=== PATIENT | male | born 1965 | race Caucasian/White ===

== ENCOUNTER 2016-04-19 15:08 | Emergency (ER) | payer MEDICARE ==
[2016-04-19] MEDS ORDERED: ASPIRIN 81 MG TABLET, CHEWABLE PO ONE (15:24)
--- NOTE | 2016-04-19 15:24 | ER Document Report ---
ED Medical Screen (RME) - General Stated Complaint: DIFFICULTY BREATHING Time seen by provider: 15:22 Mode of Arrival: Ambulatory Information source: Patient Notes: 51-year-old male presents to ED for shortness of breath states he is on 2 L of oxygen at home but does not have a portable tank. He has a history of CHF and COPD. Shortness of breath got much worse this morning. States chest is real tight hurts. States she's never had a heart attack does have elevated blood pressure and cholesterol with diabetes. Shortness of breath started this morning real bad chest pain started midday. I have greeted and performed a rapid initial assessment of this patient. A comprehensive ED assessment and evaluation of the patient, analysis of test results and completion of medical decision making process will be conducted by an additional ED providers. TRAVEL OUTSIDE OF THE [place] IN LAST 30 DAYS: No - HPI Onset: This morning - Related Data Allergies/Adverse Reactions: No Known Allergies Allergy (Verified 11/14/ 00:17) Past Medical History - Past Medical History Cardiac Medical History: Reports: Hx Congestive Heart Failure, Hx Hypercholesterolemia, Hx Hypertension Pulmonary Medical History: Reports: Hx COPD, Hx Sleep Apnea Neurological Medical History: Reports: Hx Migraine, Hx Seizures Endocrine Medical History: Reports: Hx Diabetes Mellitus Type 2 Past Surgical History: Reports: Hx Adenoidectomy, Hx Appendectomy, Hx Cardiac Catheterization, Hx Cholecystectomy, Hx Orthopedic Surgery - Lumbar Fusion, Hx Tonsillectomy - Immunizations Hx Diphtheria, Pertussis, Tetanus Vaccination: Yes
--- NOTE | 2016-04-19 15:53 | ER Document Report ---
ED General - General Chief Complaint: Shortness Of Breath Stated Complaint: DIFFICULTY BREATHING Mode of Arrival: Ambulatory Notes: This is a 51-year-old male with obesity, hypertension, diabetes, COPD on home oxygen who presents complaining of sinus congestion and a cough. He states that he has had similar symptoms about 3 weeks ago. He took steroids and amoxicillin at that time. He did improve temporarily but feels that he is worsened over the past couple of days. He attributes this with traveling to [place], he states he was get sick when he goes to [place]. No leg pain or swelling. TRAVEL OUTSIDE OF THE [place] IN LAST 30 DAYS: No - Related Data Allergies/Adverse Reactions: No Known Allergies Allergy (Verified 04/19/16 15:25) Past Medical History - General Information source: Patient - Social History Smoking Status: Current Every Day Smoker Chew tobacco use (# tins/day): No Frequency of alcohol use: None Drug Abuse: None Family History: Reviewed & Not Pertinent Patient has suicidal ideation: No Patient has homicidal ideation: No - Past Medical History Cardiac Medical History: Reports: Hx Congestive Heart Failure, Hx Hypercholesterolemia, Hx Hypertension Pulmonary Medical History: Reports: Hx COPD, Hx Sleep Apnea Neurological Medical History: Reports: Hx Migraine, Hx Seizures Endocrine Medical History: Reports: Hx Diabetes Mellitus Type 2 Renal/ Medical History: Denies: Hx Peritoneal Dialysis Past Surgical History: Reports: Hx Adenoidectomy, Hx Appendectomy, Hx Cardiac Catheterization, Hx Cholecystectomy, Hx Orthopedic Surgery - Lumbar Fusion, Hx Tonsillectomy - Immunizations Hx Diphtheria, Pertussis, Tetanus Vaccination: Yes Review of Systems - Review of Systems Constitutional: Chills, Malaise. denies: Fever EENT: Throat pain Cardiovascular: denies: Syncope Respiratory: Cough, Short of breath, Wheezing Gastrointestinal: denies: Abdominal pain, Vomiting Genitourinary: denies: Flank pain Musculoskeletal: denies: Leg swelling Skin: denies: Rash Hematologic/Lymphatic: denies: Swollen glands Neurological/Psychological: denies: Numbness, Tingling Physical Exam - Vital signs Vitals: Temp Pulse Resp BP Pulse Ox 98.0 F 91 18 145/84 H 96 04/19/16 15:24 04/19/16 15:24 04/19/16 15:24 04/19/16 15:24 04/19/16 15:24 - General General appearance: Appears well, Alert In distress: None - Jovial, pleasant, no distress - HEENT Head: Normocephalic Pupils: PERRL Mouth/Lips: Normal Mucous membranes: Normal Pharynx: Normal Neck: Normal - Respiratory Respiratory status: Tachypnea - Mild tachypnea, no retractions Chest status: Nontender Breath sounds: Wheezing - Diffuse bilateral wheezing with fair air entry throughout Chest palpation: Normal - Cardiovascular Rhythm: Regular Murmur: No - Abdominal Inspection: Morbidly Obese Tenderness: Nontender - Back Back: Normal - Extremities General upper extremity: Normal inspection General lower extremity: Normal inspection. No: Edema - Neurological Neuro grossly intact: Yes Orientation: AAOx4 - Psychological Associated symptoms: Normal affect - Skin Skin Temperature: Warm Skin Moisture: Dry Skin Color: Normal Course - Re-evaluation Re-evalutation: 04/19/16 18:08 Patient significantly improved after treatment here. Breath sounds are now clear and equal. Oxygen saturation on his normal 2 L oxygen is greater than 96% . He is able to speak in complete sentences. Chest x-ray does not show any acute infiltrates. Patient is comfortable going home and understands his return precautions. - Vital Signs Vital signs: Temp Pulse Resp BP Pulse Ox 98.0 F 91 16 130/75 H 96 04/19/16 15:24 04/19/16 15:24 04/19/16 17:33 04/19/16 17:33 04/19/16 17:33 - Laboratory Result Diagrams: 04/19/16 15:40 04/19/16 15:40 Laboratory results interpreted by me: 04/19/16 04/19/16 15:40 15:40 Plt Count 130 L Monocytes % 13.1 H Chloride 95 L Carbon Dioxide 33 H Glucose 247 H - Diagnostic Test Radiology reviewed: Image reviewed, Reports reviewed - EKG Interpretation by Ri EKG shows normal: Sinus rhythm Rate: Normal Rhythm: NSR - 91 [place]/QRS: Left axis deviation Discharge - Discharge Clinical Impression: COPD with acute bronchitis, Sinus congestion Condition: Good Disposition: HOME, SELF-CARE Additional Instructions: return if you are feeling more short of breath, have high fever, a lot of pain or any new concerns. Follow up with your primary care physician/ practioner on Friday. Prescriptions: Azithromycin [Zithromax 250 mg Tablet] 250 mg PO ASDIR PRN #6 tablet PRN Reason: Guaifenesin [Mucinex] 1,200 mg PO Q12 #14 tbmp.12hr Prednisone [Deltasone 20 mg Tablet] 3 tab PO DAILY 5 Days Referrals: ARPITA GAXIOLA PA-C [Primary Care Provider] - Follow up as needed
[2016-04-19] MEDS ORDERED: IPRATROPIUM/ALBUTEROL 0.5-2.5 MG/3 ML AMPUL NEB ONE (16:05)
[2016-04-19] MEDS ORDERED: METHYLPREDNISOLONE INJ 125 MG/2 ML SDV IV ONE (16:05)
[2016-04-19 16:15] LABS: ABSOLUTE EOSINOPHILS # (AUTO) 0.1 10^3/uL (0.0-0.6); ABSOLUTE LYMPHOCYTES (AUTO) 1.5 10^3/uL (0.5-4.7); ABSOLUTE MONOCYTES (AUTO) 0.7 10^3/uL (0.1-1.4); ABSOLUTE NEUT (AUTO) 3.2 10^3/uL (1.7-8.2); BASOPHILS % (AUTO) 0.6 % (0-2); EOSINOPHILS % (AUTO) 1.6 % (0-6); HEMATOCRIT 48.6 % (37.9-51.0); HEMOGLOBIN 15.8 g/dL (13.5-17.0); HGB HCT DIFFERENCE -1.2; LYMPHOCYTES % (AUTO) 27.3 % (13-45); MEAN CORPUSCULAR HEMOGLOBIN 30.4 pg (27.0-33.4); MEAN CORPUSCULAR HGB CONC 32.5 g/dL (32.0-36.0); MEAN CORPUSCULAR VOLUME 94 fl (80-97); MONOCYTES % (AUTO) 13.1 % (3-13); RED CELL DISTRIBUTION WIDTH 13.3 % (11.5-14.0); SEGMENTED NEUTROPHILS % (AUTO) 57.4 % (42-78); WHITE BLOOD COUNT 5.5 10^3/uL (4.0-10.5)
[2016-04-19 16:44] LABS: ALANINE AMINOTRANSFERASE 41 U/L (21-72); ALKALINE PHOSPHATASE 82 U/L (38-126); ANION GAP 10 (5-19); ASPARTATE AMINO TRANSFERASE 31 U/L (17-59); BLOOD UREA NITROGEN 13 mg/dL (7-20); CALCIUM 9.5 mg/dL (8.4-10.2); CARBON DIOXIDE 33 mmol/L (22-30); CHLORIDE 95 mmol/L (98-107); CREATINE KINASE 115 U/L (55-170); CREATININE RESULT 0.79 mg/dL (0.52-1.25); GLUCOSE 247 mg/dL (75-110); MAGNESIUM 1.7 mg/dL (1.6-2.3); POTASSIUM 4.4 mmol/L (3.6-5.0); SODIUM 137.7 mmol/L (137-145); TOTAL PROTEIN 7.5 g/dL (6.3-8.2)
[2016-04-19 16:55] LABS: CREATINE KINASE MB 2.68 ng/mL (<4.55)
[2016-04-19 16:59] LABS: TROPONIN I < 0.012 ng/mL
[2016-04-19] MEDS ORDERED: PREDNISONE 20 MG TABLET PO ONE (17:11)
[2016-04-19 19:46] VITALS: BP 139/88
--- NOTE | 2016-04-19 20:56 | EKG REPORT ---
SEVERITY:- OTHERWISE NORMAL ECG - SINUS RHYTHM BORDERLINE LEFT AXIS DEVIATION : Confirmed by: Yfn De Guzman MD 19-Apr-2016 20:55:49
== END 2016-04-19 19:46 | disposition home or self-care (01) ==
LOC: ER 15:08
DX: J44.9 Chronic obstructive pulmonary disease, unspecified (principal); J20.9 Acute bronchitis, unspecified; R09.81 Nasal congestion; R06.02 Shortness of breath; E66.9 Obesity, unspecified; I10 Essential (primary) hypertension; E11.9 Type 2 diabetes mellitus without complications; R05 Cough; F17.210 Nicotine dependence, cigarettes, uncomplicated
CPT/HCPCS: 93005; 94640; 99285; 36415; 82553; 82550; 83735; 85025; 80053; 84484; 71020; 93010; A9270 ×3; J7512; J7620

== ENCOUNTER → 2016-10-09 | Outpatient (CLI) | payer MEDICARE ==
--- NOTE | 2016-10-09 12:25 | RADIOLOGY REPORT (SQ) ---
EXAM DESCRIPTION: CHEST PA/LAT COMPLETED DATE/TIME: 10/09/2016 12:09 pm REASON FOR STUDY: COPD WITH ACUTE EXACERBATION COMPARISON: 04/19/2016 EXAM PARAMETERS: NUMBER OF VIEWS: two views TECHNIQUE: Digital Frontal and Lateral radiographic views of the chest acquired. RADIATION DOSE: NA LIMITATIONS: none FINDINGS: LUNGS AND PLEURA: Interstitial markings are prominent but unchanged. No consolidation or effusions. MEDIASTINUM AND HILAR STRUCTURES: No masses or contour abnormalities. HEART AND VASCULAR STRUCTURES: Heart normal size. No evidence for failure. BONES: No acute findings. HARDWARE: None in the chest. OTHER: No other significant finding. IMPRESSION: NO SIGNIFICANT RADIOGRAPHIC FINDING IN THE CHEST. TECHNICAL DOCUMENTATION: JOB ID: [id number] [employer]- All Rights Reserved
--- NOTE | 2016-10-10 16:36 | XCELERA REPORT ---
[address] [address] Lower Extremity Venous Evaluation Name: BARBARA ESTEBAN Age: 51 yrs Gender: Male : 1965 Patient Status: Outpatient Patient Location: Study Date: 10/09/2016 12:51 PM Procedure: Color flow and duplex imaging of the veins of the right lower extremity as well as the left Common Femoral vein. Reason For Study: RIGHT CALF PAIN Ordering Physician: ARPITA GAXIOLA PA-C Performed By: Lenka Preciado Right Sided Venous Evaluation Normal vessel filling wall to wall, compression and augmentation as well as Colour flow down to the infrageniculate veins. Left Sided Venous Evaluation The left common femoral vein is fully compressible. Spontaneous and phasic flow is present in the left common femoral vein. Interpretation Summary No duplex evidence of DVT or obstruction in the right lower extremity nor in the left Common Femoral vein. : ARPITA GAXIOLA PA-C > Umberto Calabrese
== END ==
LOC: SP 11:48
PROVIDERS: ATTEND Physician Assistant
DX: J44.1 Chronic obstructive pulmonary disease with (acute) exacerbation (principal); M79.661 Pain in right lower leg
CPT/HCPCS: 71020; 93971

== ENCOUNTER 2016-10-22 20:53 | Emergency (ER) | payer MEDICARE, MEDICAID ==
--- NOTE | 2016-10-22 21:10 | ER Document Report ---
ED Seizure - General Mode of Arrival: Medic Information source: Patient, Emergency Med Personnel - [facility] Patient complains to provider of: History of seizures Associated Symptoms: Other - See above <GREGORIA CORBETT - Last Filed: 10/22/16 21:33> <DARYA HUNTER - Last Filed: 10/23/16 00:18> - General Chief Complaint: Seizure Stated Complaint: seizure Notes: Patient is a 51 year old male, with a past medical history including epilepsy and CHF, who presents to the emergency department via EMS for seizures just prior to arrival. Per EMS, patient was at home on his couch with his brother and sister in law when they witnessed him have 5 seizures in quick succession. EMS report that when they arrived patient was sitting up and could tell them his name and his location and they then witnessed two more seizures where the patient clenched and shook, patient mostly napped on his way to the ED. Patient reports that he has not missed any of his seizure medications and is on Plavix for his CHF. Patient states that he started an antibiotic 2 weeks ago. Patient reports that his seizures have been under control and that he cannot remember his last one but that he usually does not have so many in such a short amount of time. Patient currently complains of back pain, general muscle pain, and a headache. PCP: Dr. Orona (GREGORIA CORBETT) - Related Data Allergies/Adverse Reactions: No Known Allergies Allergy (Verified 10/22/16 21:03) Past Medical History - General Information source: Patient, Emergency Med Personnel - Social History Smoking Status: Current Some Day Smoker Chew tobacco use (# tins/day): Yes Frequency of alcohol use: None Drug Abuse: None Family History: Reviewed & Not Pertinent - Past Medical History Cardiac Medical History: Reports: Hx Congestive Heart Failure, Hx Hypercholesterolemia, Hx Hypertension Pulmonary Medical History: Reports: Hx COPD, Hx Sleep Apnea Neurological Medical History: Reports: Hx Migraine, Hx Seizures Endocrine Medical History: Reports: Hx Diabetes Mellitus Type 2 Past Surgical History: Reports: Hx Adenoidectomy, Hx Appendectomy, Hx Cardiac Catheterization, Hx Cholecystectomy, Hx Orthopedic Surgery - Lumbar Fusion, Hx Tonsillectomy - Immunizations Hx Diphtheria, Pertussis, Tetanus Vaccination: Yes <GREGORIA CORBETT - Last Filed: 10/22/16 21:33> Review of Systems - Review of Systems Constitutional: No symptoms reported EENT: No symptoms reported Cardiovascular: No symptoms reported Respiratory: No symptoms reported Gastrointestinal: No symptoms reported Genitourinary: No symptoms reported Male Genitourinary: No symptoms reported Musculoskeletal: See HPI, Back pain, Muscle pain Skin: No symptoms reported Hematologic/Lymphatic: No symptoms reported Neurological/Psychological: See HPI, Seizure, Headaches -: Yes All other systems reviewed and negative <GREGORIA CORBETT - Last Filed: 10/22/16 21:33> Physical Exam <CHELLEGREGORIA - Last Filed: 10/22/16 21:33> <DARYA HUNTER - Last Filed: 10/23/16 00:18> - Vital signs Vitals: Resp BP Pulse Ox 14 122/85 99 10/22/16 21:01 10/22/16 21:01 10/22/16 21:01 - Notes Notes: GENERAL: Appears tired but becomes alert quickly. No acute distress. HEAD: Normocephalic, atraumatic. EYES: Pupils equal, round, and reactive to light. Extraocular movements intact. ENT: Oral mucosa moist, tongue midline. no bite pollard to tongue. NECK: Full range of motion. Supple. Trachea midline. LUNGS: Clear to auscultation bilaterally, no wheezes, rales, or rhonchi. No respiratory distress. HEART: Regular rate and rhythm. No murmurs, gallops, or rubs. ABDOMEN: Soft, non-tender. Non-distended. Bowel sounds present in all 4 quadrants. EXTREMITIES: Moves all 4 extremities spontaneously. No edema, radial and dorsalis pedis pulses 2/4 bilaterally. No cyanosis. NEUROLOGICAL: Alert and oriented x3. Sleeping, awakes to verbal stimuli. Normal speech. Biceps and patellar DTRs 2+ bilaterally. PSYCH: Normal affect, normal mood. SKIN: Warm, dry, normal turgor. No rashes or lesions noted. (GREGORIA CORBETT) Course <GREGORIA CORBETT - Last Filed: 10/22/16 21:33> - Laboratory Result Diagrams: 10/22/16 22:17 10/22/16 22:17 <DARYA HUNTER - Last Filed: 10/23/16 00:18> - Re-evaluation Re-evalutation: 10/22/16 23:25 CBC unremarkable with the exception of slightly low platelets 117, coags normal , CMP shows elevated glucose at 227 otherwise unremarkable, CT scan of the head is negative, chest x-ray is negative. Patient had 2 more seizures here in the emergency department but after a gram of Keppra IV he is completely back to normal. Only complains of his usual headache and backache after a seizure. That technically he fit the definition for status epilepticus tonight however he has completely normalized, discussed transfer him to another hospital for observation versus keeping him here for a little bit longer and then discharging to home so long as he stayed neurologically intact. At present patient would like to be discharged so long he does he does not have another seizure tonight. I am uncertain what may have triggered his increased seizure frequency, he did just finish taking a new antibiotic tonight but he cannot remember its name. This was for possible prostatitis. Patient has not skipped any of the seizure medications and has no medications. Patient will be referred to Dr. Nuno as an outpatient for further follow-up. (DARYA HUNTER) - Vital Signs Vital signs: Temp Pulse Resp BP Pulse Ox 13 137/88 H 96 10/22/16 22:17 10/22/16 22:17 10/22/16 22:17 - Laboratory Laboratory results interpreted by me: 10/22/16 10/22/16 10/22/16 22:17 22:17 23:00 Plt Count 117 L Glucose 227 H Urine Protein 30 H Urine Glucose (UA) 50 H - EKG Interpretation by Me Additional EKG results interpreted by me: 10/22/16 23:26 EKG shows sinus rhythm at a rate of 97, left axis deviation, normal intervals, no ST segment elevations or depressions, no T-wave inversions per my interpretation. (DARYA HUNTER) Discharge <GREGORIA CORBETT - Last Filed: 10/22/16 21:33> <DARYA HUNTER - Last Filed: 10/23/16 00:18> - Discharge Clinical Impression: Seizures Condition: Stable Disposition: HOME, SELF-CARE Additional Instructions: I am uncertain why you had so any seizures this evening. Should you have another seizure please return to the emergency department and we will consider admitting you. Do not skip any doses of your medications. Please follow-up with Dr. Nuno as an outpatient for further evaluation by a neurologist. Referrals: ARPITA ORONA PA-C [Primary Care Provider] - Follow up as needed ROBERT NUNO MD [ACTIVE STAFF] - Follow up in 3-5 days Scribe Attestation: 10/22/16 23:28 I personally performed the services described in the documentation, reviewed and edited the documentation which was dictated to the scribe in my presence, and it accurately records my words and actions. (DARYA HUNTER) Scribe Documentation - Scribe Written by Yolie:: yolie Ramirez, 10/22/16, 2132 acting as scribe for :: Slick <GREGORIA CORBETT - Last Filed: 10/22/16 21:33>
[2016-10-22] MEDS ORDERED: LEVETIRACETAM 1000 MG/NACL-ISO 100 ML IV ONE (21:27)
[2016-10-22 22:26] LABS: ABSOLUTE BASOPHILS # (AUTO) 0.1 10^3/uL (0.0-0.2); ABSOLUTE EOSINOPHILS # (AUTO) 0.1 10^3/uL (0.0-0.6); ABSOLUTE LYMPHOCYTES (AUTO) 1.7 10^3/uL (0.5-4.7); ABSOLUTE MONOCYTES (AUTO) 0.5 10^3/uL (0.1-1.4); ABSOLUTE NEUT (AUTO) 4.3 10^3/uL (1.7-8.2); BASOPHILS % (AUTO) 0.9 % (0-2); EOSINOPHILS % (AUTO) 1.7 % (0-6); HEMATOCRIT 43.9 % (37.9-51.0); HEMOGLOBIN 14.9 g/dL (13.5-17.0); HGB HCT DIFFERENCE 0.8; LYMPHOCYTES % (AUTO) 25.4 % (13-45); MEAN CORPUSCULAR HEMOGLOBIN 31.8 pg (27.0-33.4); MEAN CORPUSCULAR HGB CONC 34.1 g/dL (32.0-36.0); MEAN CORPUSCULAR VOLUME 94 fl (80-97); MONOCYTES % (AUTO) 7.9 % (3-13); RED BLOOD COUNT 4.69 10^6/uL (4.35-5.55); RED CELL DISTRIBUTION WIDTH 13.5 % (11.5-14.0); SEGMENTED NEUTROPHILS % (AUTO) 64.1 % (42-78); WHITE BLOOD COUNT 6.7 10^3/uL (4.0-10.5)
[2016-10-22 22:33] LABS: PROTHROMBIN TIME 13.3 SEC (11.4-15.4)
[2016-10-22 22:34] LABS: PARTIAL THROMBOPLASTIN TIME 27.2 SEC (23.5-35.8)
--- NOTE | 2016-10-22 22:37 | RADIOLOGY REPORT (SQ) ---
EXAM DESCRIPTION: CHEST SINGLE VIEW COMPLETED DATE/TIME: 10/22/2016 10:29 pm REASON FOR STUDY: 5 seizures COMPARISON: 10/09/2016 EXAM PARAMETERS: NUMBER OF VIEWS: One view. TECHNIQUE: Single frontal radiographic view of the chest acquired. RADIATION DOSE: NA LIMITATIONS: None. FINDINGS: LUNGS AND PLEURA: No opacities, masses or pneumothorax. No pleural effusion. MEDIASTINUM AND HILAR STRUCTURES: No masses. Contour normal. HEART AND VASCULAR STRUCTURES: The configuration of the heart and mediastinal structures is unchanged . BONES: Degenerative changes are again identified in the thoracic spine HARDWARE: None in the chest. OTHER: No other significant finding. IMPRESSION: No significant interval change. No acute findings. Other findings as noted above TECHNICAL DOCUMENTATION: JOB ID: [id number]
[2016-10-22 22:43] LABS: ALANINE AMINOTRANSFERASE 53 U/L (21-72); ALBUMIN 4.3 g/dL (3.5-5.0); ALKALINE PHOSPHATASE 73 U/L (38-126); ANION GAP 10 (5-19); ASPARTATE AMINO TRANSFERASE 32 U/L (17-59); BILIRUBIN,DIRECT 0.3 mg/dL (0.0-0.4); BILIRUBIN,TOTAL 0.7 mg/dL (0.2-1.3); BLOOD UREA NITROGEN 15 mg/dL (7-20); CALCIUM 9.4 mg/dL (8.4-10.2); CARBON DIOXIDE 29 mmol/L (22-30); CHLORIDE 100 mmol/L (98-107); CREATININE RESULT 0.95 mg/dL (0.52-1.25); GLUCOSE 227 mg/dL (75-110); POTASSIUM 4.1 mmol/L (3.6-5.0); SODIUM 138.9 mmol/L (137-145); TOTAL PROTEIN 7.7 g/dL (6.3-8.2)
--- NOTE | 2016-10-22 23:08 | RADIOLOGY REPORT (SQ) ---
EXAM DESCRIPTION: CT HEAD WITHOUT COMPLETED DATE/TIME: 10/22/2016 10:38 pm REASON FOR STUDY: 5 seizures COMPARISON: October 2015 TECHNIQUE: Axial images acquired through the brain without intravenous contrast. Images reviewed wi th bone, brain and subdural windows. Images stored on PACS. All CT scanners at this facility use dose modulation, iterative reconstruction, and/or weight based d osing when appropriate to reduce radiation dose to as low as reasonably achievable (ALARA). [facility]: Dose Right [facility]: CareDose [facility]: Dose Right [facility]: Teradose 4D [facility]: Smart Dark Fibre [place] RADIATION DOSE: Up-to-date CT equipment and radiation dose reduction techniques were employed. CTDIv ol: 55.3 mGy. DLP: 996 mGy-cm. mGy. LIMITATIONS: None. FINDINGS: VENTRICLES: Normal size and contour. CEREBRUM: No masses. No hemorrhage. No midline shift. Normal gonzáles/white matter differentiation. N o evidence for acute infarction. CEREBELLUM: No masses. No hemorrhage. No alteration of density. No evidence for acute infarction. EXTRAAXIAL SPACES: No fluid collections. No masses. ORBITS AND GLOBE: No intra- or extraconal masses. Normal contour of globe without masses. CALVARIUM: No fracture. PARANASAL SINUSES: There is opacification of the right maxillary antra which was not present on the p revious study SOFT TISSUES: No mass or hematoma. OTHER: No other significant finding. IMPRESSION: No significant intracranial abnormalities were identified. Sinus disease as noted above . TECHNICAL DOCUMENTATION: JOB ID: [id number] Quality ID # [id number]: Final reports with documentation of one or more dose reduction techniques (e.g., Au tomated exposure control, adjustment of the mA and/or kV according to patient size, use of iterative reconstruction technique) 2010 [employer]- All Rights Reserved
[2016-10-22] MEDS ORDERED: KETOROLAC TROMETHAMINE INJ/PF 30 MG/1 ML SDV IV ONE (23:24)
[2016-10-22 23:36] LABS: APPEARANCE,URINE CLEAR; BILIRUBIN,URINE NEGATIVE (NEGATIVE); GLUCOSE, URINE 50 mg/dL (NEGATIVE); KETONES,URINE NEGATIVE (NEGATIVE); LEUKOCYTE ESTERASE,URINE NEGATIVE (NEGATIVE); NITRITE,URINE NEGATIVE (NEGATIVE); PROTEIN,URINE 30 mg/dL (NEGATIVE); URINE SPECIFIC GRAVITY 1.014; UROBILINOGEN,URINE NEGATIVE mg/dL (<2.0)
[2016-10-23 00:22] VITALS: BP 128/85
--- NOTE | 2016-10-23 16:24 | EKG REPORT ---
SEVERITY:- OTHERWISE NORMAL ECG - SINUS RHYTHM LEFT AXIS DEVIATION : Confirmed by: Salina Genao MD 23-Oct-2016 16:23:53
== END 2016-10-23 00:32 | disposition home or self-care (01) ==
LOC: ER 20:53
DX: R56.9 Unspecified convulsions (principal); I50.9 Heart failure, unspecified; M54.9 Dorsalgia, unspecified; R51 Headache; M79.1 Myalgia; F17.200 Nicotine dependence, unspecified, uncomplicated
CPT/HCPCS: 93005; 99285; 96375; 96365; 36415; 85025; 85610; 85730; 80053; 81001; 71010; 70450; 93010; J1885; J1953

== ENCOUNTER 2017-01-31 16:57 | Emergency (ER) | payer MEDICARE ==
[2017-01-31] MEDS ORDERED: ONDANSETRON 4 MG TAB.RAPDIS PO ONE (18:19)
[2017-01-31] MEDS ORDERED: HYDROCODONE/ACETAMINOPHEN 5-325 MG TABLET PO ONE (18:19)
--- NOTE | 2017-01-31 18:23 | ER Document Report ---
ED Fall - General Chief Complaint: Fall Injury Stated Complaint: FALL/LEFT KNEE AND HIP PAIN Time Seen by Provider: 01/31/17 17:41 Mode of Arrival: Ambulatory Information source: Patient TRAVEL OUTSIDE OF THE [place] IN LAST 30 DAYS: No - HPI Occurred: Yesterday Where: Home Context: Tripped Associated symptoms: None Location of injury/pain: Ankle, Back, Hip, Knee Quality of pain: Achy Severity: Moderate Notes: Patient arrives with complaints of pain after fall. The patient states he was walking through his living room last evening with the lights off when he tripped over a coffee table. States that he injured his right ankle, right echeverria , left knee, left hip, low back. He has a history of prior surgery to his lumbar spine with hardware. He denies striking his head. He denies loss of consciousness. He denies any chest or abdominal pain. He denies any numbness, tingling, weakness. No bowel or bladder dysfunction. No fevers. He is on Plavix. He denies any other blood thinners. He denies fever. He denies IV drug use. He denies taking any chronic pain medications. - Related data Allergies/Adverse Reactions: No Known Allergies Allergy (Verified 01/31/17 17:00) Past Medical History - Social History Smoking Status: Unknown if Ever Smoked Family History: Reviewed & Not Pertinent Patient has suicidal ideation: No Patient has homicidal ideation: No - Past Medical History Cardiac Medical History: Reports: Hx Congestive Heart Failure, Hx Hypercholesterolemia, Hx Hypertension Pulmonary Medical History: Reports: Hx COPD, Hx Sleep Apnea Neurological Medical History: Reports: Hx Migraine, Hx Seizures Endocrine Medical History: Reports: Hx Diabetes Mellitus Type 2 Renal/ Medical History: Denies: Hx Peritoneal Dialysis Past Surgical History: Reports: Hx Adenoidectomy, Hx Appendectomy, Hx Cardiac Catheterization, Hx Cholecystectomy, Hx Orthopedic Surgery - Lumbar Fusion, Hx Tonsillectomy - Immunizations Hx Diphtheria, Pertussis, Tetanus Vaccination: Yes Review of Systems - Review of Systems -: Yes All other systems reviewed and negative Physical Exam - Vital signs Vitals: Temp Pulse Resp BP Pulse Ox 97.8 F 100 18 163/115 H 95 01/31/17 17:00 01/31/17 17:00 01/31/17 17:00 01/31/17 17:00 01/31/17 17:00 - Notes Notes: GENERAL: alert, cooperative, nontoxic, no distress. HEAD: normocephalic, atraumatic EYES: conjunctiva pink without discharge, no external redness or swelling. PERRL , EOM'S INTACT EARS: no external swelling, no external redness. No hemotympanum EM NOSE: atraumatic, no external swelling. No bleeding MOUTH/THROAT: mucous membranes moist and pink, posterior pharynx without erythema, swelling, exudate. No trismus or drooling. NECK: soft, supple, full range of motion, no meningismus. No midline tenderness step-offs or crepitus to palpation of the cervical spine. CHEST: no distress, lungs clear and equal throughout. No wheezing, rales, rhonchi. No tenderness. CARDIAC: regular rate and rhythm, no murmur, normal capillary refill, normal pulses. No peripheral edema noted. ABDOMEN: Soft, nontender. No ecchymosis. BACK: full range of motion, no CVA tenderness. No midline tenderness step-offs or crepitus to palpation of the thoracic spine. Tenderness to palpation of the midline lumbar spine. No step-offs or crepitus. Healed postsurgical incisions noted. No redness or swelling. EXTREMITIES: full range of motion of all extremities. No redness, no swelling. Tenderness to palpation to the lateral malleolus of the right ankle. No significant swelling. No deformity. Achilles is intact with a normal Woods' s test. Normal pulse and sensation. Patient does have some mild proximal tib- fib tenderness on exam as well. No obvious deformity. Patient has tenderness to palpation to the lateral aspect of the left knee. There is no ligament instability. He also has some mild tenderness to palpation of the left hip. He has full range of motion. Normal pulse and sensation distally. NEURO: alert and oriented x 3, no focal deficits, full range of motion of all extremities. Cranial nerves II through XII are grossly intact. Reflexes are normal bilaterally. Normal sensation bilaterally. Normal strength bilaterally. PYSCH: appropriate mood, affect. Patient is cooperative. SKIN: pink, warm, dry, no rash. Course - Re-evaluation Re-evalutation: 01/31/17 19:33 Patient is nontoxic appearing with stable vitals. The patient tripped over a coffee table last evening and injured his left hip and knee right leg and ankle and low back. He did not strike his head, no loss of consciousness. He has normal neurological exam. X-rays of the lumbar spine, left knee, right tib-fib and right ankle, left hip are negative for acute findings. Patient will be placed in an Nash wrap on the left knee and an ankle stirrup splint on the right ankle. Discharged home with a prescription for Voltaren. Follow-up if not better in 1 week, sooner for increased pain, fever, numbness, tingling, weakness , bowel or bladder dysfunction, or any further concerns. No sign of cauda equina, epidural abscess bleed, discitis, AAA. The patient is noted to have elevated blood pressure during today's emergency department visit. The patient was informed of this finding. The patient was instructed that this may be related to pre-hypertension and requires further evaluation with a primary care provider. The patient has no hypertensive symptoms at this time. The patient's emergency department workup and current diagnosis were explained to the patient and or family. Follow-up instructions were provided. Medications if prescribed were discussed. Instructions for when to return to the emergency department including specific worrisome symptoms were discussed with the patient and/or family. - Vital Signs Vital signs: Temp Pulse Resp BP Pulse Ox 97.8 F 100 18 163/115 H 95 01/31/17 17:00 01/31/17 17:00 01/31/17 17:00 01/31/17 17:00 01/31/17 17:00 - Diagnostic Test Radiology reviewed: Image reviewed, Reports reviewed - Right ankle, right tib- fib, left knee, left hip, lumbar spine with no acute findings. Procedures - Immobilization Left knee Pre-Proc Neuro Vasc Exam: Normal Immobilizer type: Nash wrap Performed by: PCT Post-Proc Neuro Vasc Exam: Normal, Unchanged from pre-exam Alignment checked and good: Yes Right ankle Pre-Proc Neuro Vasc Exam: Normal Immobilizer type: Ankle stirrup Performed by: PCT Post-Proc Neuro Vasc Exam: Normal, Unchanged from pre-exam Alignment checked and good: Yes Discharge - Discharge Clinical Impression: Right ankle sprain Qualifiers: Encounter type: initial encounter Involved ligament of ankle: unspecified ligament Qualified Code(s): S93.401A - Sprain of unspecified ligament of right ankle, initial encounter Left knee sprain Qualifiers: Encounter type: initial encounter Involved ligament of knee: unspecified ligament Qualified Code(s): S83.92XA - Sprain of unspecified site of left knee, initial encounter Lumbar strain Qualifiers: Encounter type: initial encounter Qualified Code(s): S39.012A - Strain of muscle, fascia and tendon of lower back, initial encounter Condition: Stable Disposition: HOME, SELF-CARE Instructions: Ice & Elevation ([facility]), Ice Packs ([facility]), Splint Precautions ([facility]) , Sprained Ankle ([facility]), Sprained Knee ([facility]) Additional Instructions: Take medications as prescribed. Wear splints as needed for comfort. Rest, ice , elevate your injuries. Follow-up if not better in 1 week, sooner for increased pain, fever, abdominal pain, difficulty controlling her bowels or bladder, persistent vomiting, fevers, or any further concerns. Your blood pressure was elevated during today's visit. Have this rechecked with your doctor. Prescriptions: Diclofenac Sodium [Jeanearen 50 Mg Tablet.] 50 mg PO BID #20 tablet.dr Forms: Elevated Blood Pressure Referrals: [facility] [Provider Group] - Follow up as needed
--- NOTE | 2017-01-31 19:14 | RADIOLOGY REPORT (SQ) ---
EXAM DESCRIPTION: KNEE LEFT 3 VIEWS COMPLETED DATE/TIME: 01/31/2017 7:02 pm REASON FOR STUDY: FALL, PAIN COMPARISON: None. NUMBER OF VIEWS: Three views. TECHNIQUE: AP, lateral, and sunrise patella radiographic images acquired of the left knee. LIMITATIONS: None. FINDINGS: MINERALIZATION: Normal. BONES: No acute fracture or dislocation. No worrisome bone lesions. JOINT: Mild osteoarthritis of the patellofemoral and medial tibiofemoral compartments. SOFT TISSUES: No soft tissue swelling. No radio-opaque foreign body. OTHER: No other significant finding. IMPRESSION: MILD OSTEOARTHRITIS. NO RADIOGRAPHIC EVIDENCE OF ACUTE INJURY. TECHNICAL DOCUMENTATION: JOB ID: [id number] [employer]- All Rights Reserved
--- NOTE | 2017-01-31 19:14 | RADIOLOGY REPORT (SQ) ---
EXAM DESCRIPTION: HIP LEFT AP/LATERAL COMPLETED DATE/TIME: 01/31/2017 7:02 pm REASON FOR STUDY: FALL, PAIN COMPARISON: None. NUMBER OF VIEWS: Two views. TECHNIQUE: AP pelvis and additional frog-leg view of the left hip. LIMITATIONS: None. FINDINGS: MINERALIZATION: Normal. LEFT HIP: No fracture or dislocation. No worrisome bone lesions. RIGHT HIP: No fracture or dislocation. No worrisome bone lesions. PUBIS AND ISCHIUM: No fracture. PELVIS: No fracture. SACRUM: No fracture or dislocation. No worrisome bone lesions. LOWER LUMBAR SPINE: No fracture or dislocation. No worrisome bone lesions. No significant disc disea se. SOFT TISSUES: No findings. OTHER: No other significant finding. IMPRESSION: NEGATIVE STUDY OF THE LEFT HIP AND PELVIS. NO RADIOGRAPHIC EVIDENCE OF ACUTE INJURY. TECHNICAL DOCUMENTATION: JOB ID: [id number] [employer]- All Rights Reserved
--- NOTE | 2017-01-31 19:16 | RADIOLOGY REPORT (SQ) ---
EXAM DESCRIPTION: TIBIA FIBULA RIGHT COMPLETED DATE/TIME: 01/31/2017 7:02 pm REASON FOR STUDY: FALL, PAIN COMPARISON: None. NUMBER OF VIEWS: Two views. TECHNIQUE: Two radiographic images acquired of the right tibia and fibula to include the knee and an kle in at least one projection. LIMITATIONS: None. FINDINGS: MINERALIZATION: Normal. BONES: No acute fracture or dislocation. No worrisome bone lesions. SOFT TISSUES: No obvious swelling or foreign body. OTHER: No other significant finding. IMPRESSION: NO RADIOGRAPHIC EVIDENCE OF ACUTE INJURY. TECHNICAL DOCUMENTATION: JOB ID: [id number] [email or web address]- All Rights Reserved
--- NOTE | 2017-01-31 19:17 | RADIOLOGY REPORT (SQ) ---
EXAM DESCRIPTION: ANKLE RIGHT COMPLETE COMPLETED DATE/TIME: 01/31/2017 7:02 pm REASON FOR STUDY: FALL, PAIN COMPARISON: None. NUMBER OF VIEWS: Three views. TECHNIQUE: AP, lateral, and oblique radiographic images acquired of the right ankle. LIMITATIONS: None. FINDINGS: MINERALIZATION: Normal. BONES: No acute fracture or dislocation. No worrisome bone lesions. JOINTS: No effusions. SOFT TISSUES: Soft tissue calcification versus retained foreign body abutting the medial malleolus. No focal soft tissue swelling. OTHER: No other significant finding. IMPRESSION: NO RADIOGRAPHIC EVIDENCE OF ACUTE INJURY. SOFT TISSUE CALCIFICATION VERSUS RETAINED FOR EIGN BODY PRESUMABLY CHRONIC GIVEN ABSENCE OF ADJACENT SOFT TISSUE SWELLING. TECHNICAL DOCUMENTATION: JOB ID: [id number] [employer]- All Rights Reserved
--- NOTE | 2017-01-31 19:18 | RADIOLOGY REPORT (SQ) ---
EXAM DESCRIPTION: L SPINE WHOLE COMPLETED DATE/TIME: 01/31/2017 7:02 pm REASON FOR STUDY: FALL, PAIN COMPARISON: 08/16/2015 NUMBER OF VIEWS: Five views including obliques. TECHNIQUE: AP, lateral, oblique, and sacral radiographic images acquired of the lumbar spine. LIMITATIONS: None. FINDINGS: MINERALIZATION: Normal. SEGMENTATION: Normal. No transitional anatomy. ALIGNMENT: Stable. VERTEBRAE: Maintained height. No fracture or worrisome bone lesion. DISCS: Stable degenerative change. POSTERIOR ELEMENTS: Stable postsurgical change. Pedicles and facets are intact. No pars defect or p osterior arch defects. HARDWARE: Intact. PARASPINAL SOFT TISSUES: Normal. PELVIS: Intact as visualized. No fractures or worrisome bone lesions. SI joints intact. OTHER: No other significant finding. IMPRESSION: NO ACUTE OSSEOUS ABNORMALITY OR HARDWARE COMPLICATION IDENTIFIED. TECHNICAL DOCUMENTATION: JOB ID: [id number] [email or web address]- All Rights Reserved
[2017-01-31 20:12] VITALS: BP 168/93
== END 2017-01-31 19:48 | disposition home or self-care (01) ==
LOC: ER 16:57
DX: S93.401A Sprain of unspecified ligament of right ankle, initial encounter (principal); S83.92XA Sprain of unspecified site of left knee, initial encounter; S39.012A Strain of muscle, fascia and tendon of lower back, initial encounter; M25.562 Pain in left knee; M25.552 Pain in left hip; W01.0XXA Fall on same level from slipping, tripping and stumbling without subsequent striking against object, initial encounter
CPT/HCPCS: 99283; 73610; 73502; 73562; 72110; 73590; L1902; A9270 ×2; S0119

== ENCOUNTER 2017-02-10 07:13 | Day surgery (SDC) | payer MEDICARE, MEDICAID ==
[2017-02-10] MEDS ORDERED: PROPOFOL INJ 200 MG/20 ML VIAL IV ONE ×2 (07:22→08:20)
[2017-02-10 09:06] VITALS: BP 114/63
--- NOTE | 2017-02-10 13:30 | Operative Report ---
Operative Report DATE OF SURGERY: 02/10/17 Operative Report: The risks, benefits and alternatives of the procedure including risks of bleeding, perforation requiring surgery are explained to the patient in detail and informed consent was obtained. Patient was taken back to the endoscopy suite and placed in the left, lateral decubital position. Timeout was called. Propofol medications administered. A rectal examination was done which did not reveal any masses, tears or fissures. An Olympus videoscope was inserted into the patient's rectum. It is carefully advanced all the way to the cecum. The cecum was identified by the usual anatomical landmarks including the ileocecal valve as well as the appendiceal office. Photodocumentation is obtained. The scope was then sequentially pulled back out via the various segments of the colon including the ascending colon, hepatic flexure, transverse colon, splenic flexure, descending colon finding the rectosigmoid portions of the colon. Retroflexion maneuvers performed. PREOPERATIVE DIAGNOSIS: Colorectal cancer screening POSTOPERATIVE DIAGNOSIS: Transverse colon polyps status post removal with snare polypectomy and retrieved. Internal hemorrhoids OPERATION: Colonoscopy with snare polypectomy SURGEON: SHEYLA MCQUEEN ANESTHESIA: LMAC TISSUE REMOVED OR ALTERED: As noted above. COMPLICATIONS: None. ESTIMATED BLOOD LOSS: None. INTRAOPERATIVE FINDINGS: As noted above. PROCEDURE: Patient tolerated procedure well. No immediate postprocedure complications are noted. Patient discharged in good condition. Discharge date 02/10/2017. Discharge diet: Regular. Discharge activity: Regular. 2-3 week follow-up to discuss findings. 3-5 year surveillance colonoscopy. We will await pathology. Patient is instructed to call the office or proceed to the emergency room should there be any further problems or questions.
== END 2017-02-10 08:57 | disposition home or self-care (01) ==
LOC: END 07:13
PROVIDERS: ATTEND Internal Medicine Gastroenterology
PROC: 0DBL8ZX Excision of Transverse Colon, Via Natural or Artificial Opening Endoscopic, Diagnostic (ICD-10-PCS; principal; 2017-02-10 08:00)
DX: Z12.11 Encounter for screening for malignant neoplasm of colon (principal); K63.5 Polyp of colon; K64.8 Other hemorrhoids; F17.210 Nicotine dependence, cigarettes, uncomplicated; J45.909 Unspecified asthma, uncomplicated; E78.00 Pure hypercholesterolemia, unspecified; J43.9 Emphysema, unspecified; G43.909 Migraine, unspecified, not intractable, without status migrainosus; G40.909 Epilepsy, unspecified, not intractable, without status epilepticus; I13.0 Hypertensive heart and chronic kidney disease with heart failure and stage 1 through stage 4 chronic kidney disease, or unspecified chronic kidney disease; I50.9 Heart failure, unspecified; N18.1 Chronic kidney disease, stage 1; E11.22 Type 2 diabetes mellitus with diabetic chronic kidney disease; E11.40 Type 2 diabetes mellitus with diabetic neuropathy, unspecified; Z79.899 Other long term (current) drug therapy; Z79.51 Long term (current) use of inhaled steroids; Z79.4 Long term (current) use of insulin
CPT/HCPCS: 45385; 82962; 88305 ×2; J2704; 810

== ENCOUNTER 2017-08-19 12:14 | Emergency (ER) | payer MEDICARE, MEDICAID ==
[2017-08-19] MEDS ORDERED: IPRATROPIUM/ALBUTEROL 0.5-2.5 MG/3 ML AMPUL NEB ONE (12:31)
--- NOTE | 2017-08-19 12:35 | ER Document Report ---
ED Medical Screen (RME) - General Chief Complaint: Low Blood Pressure Stated Complaint: BLOOD PRESSURE ISSUES Time Seen by Provider: 08/19/17 12:25 Notes: RAPID MEDICAL EVALUATION DISCLOSURE I have seen this patient as part of a Rapid Medical Evaluation and, if applicable, placed any initially appropriate orders. The patient will be seen and fully evaluated, including a full history and physical exam, by a provider ( in Main ED or Fast Track) when a room becomes available. 52-year-old male here with complaints of "feeling overall bad" for the past few days. He has had a worsening, as well, as his chronic shortness of breath cough (nonproductive) wheezing for which he has been using his nebulizer treatment with decent relief. Today, he went to see his PCP since he was feeling bad and his blood pressure was found to be in the 90s systolic the patient states his blood pressure is not usually less than 100. He has been eating drinking urinating per usual. He has not had any congestion runny nose sore throat dysuria hematuria frequency abdominal/chest/back/flank pain nausea vomiting diarrhea. Reports the last time this happened (low blood pressure), "there was something wrong with my kidneys". He is not on dialysis EXAM Mild end expiratory wheezes Normal aeration RRR TRAVEL OUTSIDE OF THE [place] IN LAST 30 DAYS: No - Related Data Allergies/Adverse Reactions: No Known Allergies Allergy (Verified 08/19/17 12:16) Past Medical History - Past Medical History Cardiac Medical History: Reports: Hx Congestive Heart Failure, Hx Coronary Artery Disease, Hx Hypercholesterolemia, Hx Hypertension Denies: Hx Heart Attack Pulmonary Medical History: Reports: Hx Asthma, Hx Bronchitis, Hx COPD, Hx Pneumonia, Hx Sleep Apnea Neurological Medical History: Reports: Hx Migraine, Hx Seizures - EPILEPSY. Denies: Hx Cerebrovascular Accident Endocrine Medical History: Reports: Hx Diabetes Mellitus Type 2 Renal/ Medical History: Denies: Hx Peritoneal Dialysis Musculoskeltal Medical History: Reports Hx Arthritis Past Surgical History: Reports: Hx Adenoidectomy, Hx Appendectomy, Hx Cardiac Catheterization, Hx Cholecystectomy, Hx Orthopedic Surgery - Lumbar Fusion, Hx Tonsillectomy - Immunizations Hx Diphtheria, Pertussis, Tetanus Vaccination: Yes Influenza Administration Date for 12/2016 - 05/2017 Season: 11/29/16 Physical Exam - Vital signs Vitals: Temp Pulse Resp BP Pulse Ox 98.6 F 91 22 H 109/81 93 08/19/17 12:21 08/19/17 12:21 08/19/17 12:21 08/19/17 12:21 08/19/17 12:21 Course - Vital Signs Vital signs: Temp Pulse Resp BP Pulse Ox 98.6 F 91 22 H 109/81 93 08/19/17 12:21 08/19/17 12:21 08/19/17 12:21 08/19/17 12:21 08/19/17 12:21
--- NOTE | 2017-08-19 13:07 | RADIOLOGY REPORT (SQ) ---
EXAM DESCRIPTION: CHEST 2 VIEWS COMPLETED DATE/TIME: 08/19/2017 12:57 pm REASON FOR STUDY: cough sob wheezing hypotension COMPARISON: Chest films 11/14/2015, 04/19/2016, 10/09/2016 CT chest 12/22/2014 EXAM PARAMETERS: NUMBER OF VIEWS: two views TECHNIQUE: Digital Frontal and Lateral radiographic views of the chest acquired. RADIATION DOSE: NA LIMITATIONS: none FINDINGS: LUNGS AND PLEURA: No opacities, masses or pneumothorax. No pleural effusion. MEDIASTINUM AND HILAR STRUCTURES: No masses or contour abnormalities. HEART AND VASCULAR STRUCTURES: Heart normal size. No evidence for failure. BONES: No acute findings. HARDWARE: None in the chest. OTHER: No other significant finding. IMPRESSION: NO ACUTE RADIOGRAPHIC FINDING IN THE CHEST. TECHNICAL DOCUMENTATION: JOB ID: [id number] [employer]- All Rights Reserved Reading location - IP/workstation name: [email or web address]
[2017-08-19 13:33] LABS: ABSOLUTE BASOPHILS # (AUTO) 0.1 10^3/uL (0.0-0.2); ABSOLUTE EOSINOPHILS # (AUTO) 0.1 10^3/uL (0.0-0.6); ABSOLUTE LYMPHOCYTES (AUTO) 2.9 10^3/uL (0.5-4.7); ABSOLUTE MONOCYTES (AUTO) 0.7 10^3/uL (0.1-1.4); ABSOLUTE NEUT (AUTO) 4.1 10^3/uL (1.7-8.2); BASOPHILS % (AUTO) 1.2 % (0-2); EOSINOPHILS % (AUTO) 1.6 % (0-6); HEMATOCRIT 45.9 % (37.9-51.0); HEMOGLOBIN 15.9 g/dL (13.5-17.0); LYMPHOCYTES % (AUTO) 36.6 % (13-45); MEAN CORPUSCULAR HEMOGLOBIN 32.3 pg (27.0-33.4); MEAN CORPUSCULAR HGB CONC 34.6 g/dL (32.0-36.0); MEAN CORPUSCULAR VOLUME 93 fl (80-97); MONOCYTES % (AUTO) 8.5 % (3-13); PLATELET COUNT 159 10^3/uL (150-450); RED BLOOD COUNT 4.93 10^6/uL (4.35-5.55); RED CELL DISTRIBUTION WIDTH 12.7 % (11.5-14.0); SEGMENTED NEUTROPHILS % (AUTO) 52.1 % (42-78); TOTAL CELLS COUNTED % (AUTO) 100 %; WHITE BLOOD COUNT 7.9 10^3/uL (4.0-10.5)
[2017-08-19 13:49] LABS: APPEARANCE,URINE CLEAR; BILIRUBIN,URINE NEGATIVE (NEGATIVE); COLOR,URINE YELLOW; GLUCOSE, URINE >=500 mg/dL (NEGATIVE); KETONES,URINE NEGATIVE (NEGATIVE); LEUKOCYTE ESTERASE,URINE NEGATIVE (NEGATIVE); NITRITE,URINE NEGATIVE (NEGATIVE); PROTEIN,URINE 30 mg/dL (NEGATIVE); URINE SPECIFIC GRAVITY 1.011; UROBILINOGEN,URINE NEGATIVE mg/dL (<2.0)
[2017-08-19 13:50] LABS: ALANINE AMINOTRANSFERASE 37 U/L (21-72); ALBUMIN 4.4 g/dL (3.5-5.0); ALKALINE PHOSPHATASE 68 U/L (38-126); ANION GAP 14 (5-19); ASPARTATE AMINO TRANSFERASE 29 U/L (17-59); BILIRUBIN,DIRECT 0.4 mg/dL (0.0-0.4); BILIRUBIN,TOTAL 0.8 mg/dL (0.2-1.3); BLOOD UREA NITROGEN 14 mg/dL (7-20); CALCIUM 10.1 mg/dL (8.4-10.2); CARBON DIOXIDE 31 mmol/L (22-30); CHLORIDE 96 mmol/L (98-107); GLUCOSE 218 mg/dL (75-110); NEONATAL BILIRUBIN RESULT 0.4 mg/dL (0.1-1.1); POTASSIUM 4.6 mmol/L (3.6-5.0); SODIUM 140.5 mmol/L (137-145); TOTAL PROTEIN 7.7 g/dL (6.3-8.2)
[2017-08-19] MEDS ORDERED: MECLIZINE HCL 25 MG TABLET PO ONE (14:22)
[2017-08-19] MEDS ORDERED: ACETAMINOPHEN 325 MG TABLET PO ONE (14:22)
[2017-08-19] MEDS ORDERED: NORMAL SALINE 500 ML IV ONE (14:23)
--- NOTE | 2017-08-19 14:56 | ER Document Report ---
ED General - General Chief Complaint: Low Blood Pressure Stated Complaint: BLOOD PRESSURE ISSUES Time Seen by Provider: 08/19/17 12:25 Mode of Arrival: Ambulatory Information source: Patient, DrSarthak Rosales, [facility] Records Notes: 52-year-old male here with complaints of "feeling overall bad" for the past few days. He has had a worsening of his chronic shortness of breath cough ( nonproductive) wheezing for which he has been using his nebulizer treatment with decent relief. Today, he went to see his PCP since he was feeling bad and his blood pressure was found to be in the 90s systolic the patient states his blood pressure is not usually less than 100. He has been eating, drinking, and urinating normally. Patient also complaining of a headache that started 1 day prior to arrival. Headache is located in his forehead, described as throbbing. Patient states that he has had similar headaches in the past. Patient states the headache awoke him from sleep. Patient also the room moving which is to previous episodes of vertigo for which he takes meclizine. TRAVEL OUTSIDE OF THE [place] IN LAST 30 DAYS: No - HPI Onset: Last week Onset/Duration: Gradual Quality of pain: Throbbing Severity: Moderate Associated symptoms: Headache, Nausea - Nauseous yesterday but now resolved, Shortness of breath - Chronic shortness of breath, Weakness. denies: Fever, Vomiting Exacerbated by: Denies Relieved by: Denies Similar symptoms previously: Yes Recently seen / treated by doctor: Yes - Related Data Allergies/Adverse Reactions: No Known Allergies Allergy (Verified 08/19/17 12:16) Past Medical History - General Information source: Patient - Social History Smoking Status: Current Every Day Smoker Chew tobacco use (# tins/day): Yes Frequency of alcohol use: None Drug Abuse: None Family History: Reviewed & Not Pertinent Patient has suicidal ideation: No Patient has homicidal ideation: No - Past Medical History Cardiac Medical History: Reports: Hx Congestive Heart Failure, Hx Coronary Artery Disease, Hx Hypercholesterolemia, Hx Hypertension Denies: Hx Heart Attack Pulmonary Medical History: Reports: Hx Asthma, Hx Bronchitis, Hx COPD, Hx Pneumonia, Hx Sleep Apnea Neurological Medical History: Reports: Hx Migraine, Hx Seizures - EPILEPSY. Denies: Hx Cerebrovascular Accident Endocrine Medical History: Reports: Hx Diabetes Mellitus Type 2 Renal/ Medical History: Denies: Hx Peritoneal Dialysis Musculoskeltal Medical History: Reports Hx Arthritis Past Surgical History: Reports: Hx Adenoidectomy, Hx Appendectomy, Hx Cardiac Catheterization, Hx Cholecystectomy, Hx Orthopedic Surgery - Lumbar Fusion, Hx Tonsillectomy - Immunizations Hx Diphtheria, Pertussis, Tetanus Vaccination: Yes Hx Pneumococcal Vaccination: 12/29/14 Review of Systems - Review of Systems Constitutional: Malaise, Weakness. denies: Fever EENT: denies: Blurred vision Cardiovascular: Dizziness. denies: Chest pain, Palpitations Respiratory: Short of breath - Chronic shortness of breath, Wheezing Gastrointestinal: Nausea. denies: Abdomen distended, Abdominal pain, Diarrhea, Vomiting Genitourinary: Hematuria - Hematuria resolved Male Genitourinary: denies: Penile discharge Musculoskeletal: Back pain - Chronic back pain Skin: denies: Rash Neurological/Psychological: denies: Confusion -: Yes All other systems reviewed and negative Physical Exam - Vital signs Vitals: Temp Pulse Resp BP Pulse Ox 98.6 F 91 22 H 109/81 93 08/19/17 12:21 08/19/17 12:21 08/19/17 12:21 08/19/17 12:21 08/19/17 12:21 - Notes Notes: PHYSICAL EXAMINATION: GENERAL: Well-appearing, well-nourished and in no acute distress. HEAD: Atraumatic, normocephalic. EYES: Pupils equal round and reactive to light, extraocular movements intact, sclera anicteric, conjunctiva are normal. ENT: Nares patent, oropharynx clear without exudates. Moist mucous membranes. NECK: Normal range of motion, supple without lymphadenopathy LUNGS: Breath sounds clear to auscultation bilaterally and equal. No wheezes rales or rhonchi. HEART: Regular rate and rhythm without murmurs ABDOMEN: Soft, nontender, nondistended abdomen. No guarding, no rebound. No masses appreciated. Musculoskeletal: Normal range of motion, no pitting or edema. No cyanosis. NEUROLOGICAL: Cranial nerves grossly intact. Normal speech, normal gait. Normal sensory, motor exams PSYCH: Normal mood, normal affect. SKIN: Warm, Dry, normal turgor, no rashes or lesions noted. Course - Re-evaluation Re-evalutation: Laboratory 08/19/17 08/19/17 08/19/17 13:10 13:10 13:10 WBC 7.9 RBC 4.93 Hgb 15.9 Hct 45.9 MCV 93 MCH 32.3 MCHC 34.6 RDW 12.7 Plt Count 159 Seg Neutrophils % 52.1 Lymphocytes % 36.6 Monocytes % 8.5 Eosinophils % 1.6 Basophils % 1.2 Absolute Neutrophils 4.1 Absolute Lymphocytes 2.9 Absolute Monocytes 0.7 Absolute Eosinophils 0.1 Absolute Basophils 0.1 Sodium 140.5 Potassium 4.6 Chloride 96 L Carbon Dioxide 31 H Anion Gap 14 BUN 14 Creatinine 0.83 Est GFR ( Amer) > 60 Est GFR (Non-Af Amer) > 60 Glucose 218 H Lactic Acid 1.6 Calcium 10.1 Total Bilirubin 0.8 Direct Bilirubin 0.4 Neonat Total Bilirubin 0.4 Neonat Direct Bilirubin 0.0 Neonat Indirect Bili 0.4 AST 29 ALT 37 Alkaline Phosphatase 68 Creatine Kinase CK-MB (CK-2) Troponin I NT-Pro-B Natriuret Pep Total Protein 7.7 Albumin 4.4 Urine Color Urine Appearance Urine pH Ur Specific [place] Urine Protein Urine Glucose (UA) Urine Ketones Urine Blood Urine Nitrite Urine Bilirubin Urine Urobilinogen Ur Leukocyte Esterase Urine WBC (Auto) Urine RBC (Auto) U Hyaline Cast (Auto) Urine Mucus (Auto) Urine Ascorbic Acid Urine Opiates Screen Urine Methadone Screen Ur Barbiturates Screen Ur Phencyclidine Scrn Ur Amphetamines Screen U Benzodiazepines Scrn Urine Cocaine Screen U Marijuana (THC) Screen 08/19/17 08/19/17 08/19/17 13:10 13:10 13:10 WBC RBC Hgb Hct MCV MCH MCHC RDW Plt Count Seg Neutrophils % Lymphocytes % Monocytes % Eosinophils % Basophils % Absolute Neutrophils Absolute Lymphocytes Absolute Monocytes Absolute Eosinophils Absolute Basophils Sodium Potassium Chloride Carbon Dioxide Anion Gap BUN Creatinine Est GFR ( Amer) Est GFR (Non-Af Amer) Glucose Lactic Acid Calcium Total Bilirubin Direct Bilirubin Neonat Total Bilirubin Neonat Direct Bilirubin Neonat Indirect Bili AST ALT Alkaline Phosphatase Creatine Kinase 113 CK-MB (CK-2) 3.28 Troponin I < 0.012 NT-Pro-B Natriuret Pep 80 Total Protein Albumin Urine Color YELLOW Urine Appearance CLEAR Urine pH 5.0 Ur Specific [place] 1.011 Urine Protein 30 H Urine Glucose (UA) >=500 H Urine Ketones NEGATIVE Urine Blood SMALL H Urine Nitrite NEGATIVE Urine Bilirubin NEGATIVE Urine Urobilinogen NEGATIVE Ur Leukocyte Esterase NEGATIVE Urine WBC (Auto) 1 Urine RBC (Auto) 2 U Hyaline Cast (Auto) 4 Urine Mucus (Auto) RARE Urine Ascorbic Acid NEGATIVE Urine Opiates Screen Urine Methadone Screen Ur Barbiturates Screen Ur Phencyclidine Scrn Ur Amphetamines Screen U Benzodiazepines Scrn Urine Cocaine Screen U Marijuana (THC) Screen 08/19/17 13:10 WBC RBC Hgb Hct MCV MCH MCHC RDW Plt Count Seg Neutrophils % Lymphocytes % Monocytes % Eosinophils % Basophils % Absolute Neutrophils Absolute Lymphocytes Absolute Monocytes Absolute Eosinophils Absolute Basophils Sodium Potassium Chloride Carbon Dioxide Anion Gap BUN Creatinine Est GFR ( Amer) Est GFR (Non-Af Amer) Glucose Lactic Acid Calcium Total Bilirubin Direct Bilirubin Neonat Total Bilirubin Neonat Direct Bilirubin Neonat Indirect Bili AST ALT Alkaline Phosphatase Creatine Kinase CK-MB (CK-2) Troponin I NT-Pro-B Natriuret Pep Total Protein Albumin Urine Color Urine Appearance Urine pH Ur Specific [place] Urine Protein Urine Glucose (UA) Urine Ketones Urine Blood Urine Nitrite Urine Bilirubin Urine Urobilinogen Ur Leukocyte Esterase Urine WBC (Auto) Urine RBC (Auto) U Hyaline Cast (Auto) Urine Mucus (Auto) Urine Ascorbic Acid Urine Opiates Screen NEGATIVE Urine Methadone Screen NEGATIVE Ur Barbiturates Screen NEGATIVE Ur Phencyclidine Scrn NEGATIVE Ur Amphetamines Screen NEGATIVE U Benzodiazepines Scrn NEGATIVE Urine Cocaine Screen NEGATIVE U Marijuana (THC) Screen NEGATIVE Chest X-Ray 08/19/17 12:31 IMPRESSION: NO ACUTE RADIOGRAPHIC FINDING IN THE CHEST. Head CT 08/19/17 14:21 IMPRESSION: NORMAL BRAIN CT WITHOUT CONTRAST. EVIDENCE OF ACUTE STROKE: NO. 52-year-old male presents from his primary care physician's office after his blood pressure was found to be low. Patient admits to feeling "bad" over the last few days. He reports weakness, malaise, worsening shortness of breath and cough. Patient also describing a frontal headache. Vital signs reviewed upon arrival. Patient does not appear toxic or dehydrated. He is in no acute distress. Patient has normal neurologic exam, is available to ambulate without difficulty. Orthostatic vital signs were obtained. There are no significant laboratory findings. CT of the head was obtained and showed no acute process. Chest x-ray was obtained and within normal limits. Patient did receive meclizine, Tylenol and reports an improvement of headache. Patient also received 500 cc of normal saline. 08/19/17 15:58 On reevaluation patient states he is feeling better. He ambulates without difficulty. I did speak to his primary care physician Dr. Chinchilla who is agreeable with holding the lisinopril for 3 days and discharged home with follow -up next week. Patient is eager to go home. Patient provided the opportunity to ask questions, and express concerns. Discharge instructions discussed. Patient is agreeable with discharge home. Return indications explained and discussed with the patient who displays understanding. Patient encouraged to return to the emergency department immediately with any concerns. 08/20/17 02:00 - Vital Signs Vital signs: Temp Pulse Resp BP Pulse Ox 98.6 F 67 18 122/100 H 95 08/19/17 12:21 08/19/17 16:38 08/19/17 16:38 08/19/17 16:38 08/19/17 16:38 - Laboratory Result Diagrams: 08/19/17 13:10 08/19/17 13:10 Laboratory results interpreted by me: 08/19/17 08/19/17 13:10 13:10 Chloride 96 L Carbon Dioxide 31 H Glucose 218 H Urine Protein 30 H Urine Glucose (UA) >=500 H Urine Blood SMALL H - Diagnostic Test Radiology reviewed: Image reviewed, Reports reviewed Discharge - Discharge Clinical Impression: Low blood pressure reading, Orthostatic hypotension, Vertigo Headache Qualifiers: Headache type: unspecified Headache chronicity pattern: unspecified pattern Intractability: not intractable Qualified Code(s): R51 - Headache Disposition: HOME, SELF-CARE Instructions: Orthostatic Hypotension ([facility]), Vertigo ([facility]) Additional Instructions: Please hold your blood pressure medication until you are reevaluated by your primary care physician Forms: Smoking Cessation Education Referrals: AGNES CHINCHILLA DO [Primary Care Provider] - Follow up in 3-5 days
[2017-08-19 14:59] LABS: CREATINE KINASE MB 3.28 ng/mL (<4.55); NT PRO BNP 80 pg/mL (5-900)
[2017-08-19 15:00] LABS: TROPONIN I < 0.012 ng/mL
[2017-08-19 15:20] LABS: URINE AMPHETAMINES SCREEN NEGATIVE; URINE BARBITURATES SCREEN NEGATIVE; URINE BENZODIAZEPINES SCREEN NEGATIVE; URINE COCAINE SCREEN NEGATIVE; URINE MARIJUANA (THC) SCREEN NEGATIVE; URINE METHADONE SCREEN NEGATIVE; URINE PHENCYCLIDINE SCREEN NEGATIVE
--- NOTE | 2017-08-19 15:46 | RADIOLOGY REPORT (SQ) ---
EXAM DESCRIPTION: CT HEAD WITHOUT COMPLETED DATE/TIME: 08/19/2017 3:23 pm REASON FOR STUDY: headache COMPARISON: CT brain 10/22/2016, 11/14/2015 TECHNIQUE: Axial images acquired through the brain without intravenous contrast. Images reviewed wi th bone, brain and subdural windows. Additional sagittal and coronal reconstructions were generated. Images stored on PACS. All CT scanners at this facility use dose modulation, iterative reconstruction, and/or weight based d osing when appropriate to reduce radiation dose to as low as reasonably achievable (ALARA). [facility]: Dose Right [facility]: CareDose [facility]: Dose Right [facility]: Teradose 4D [facility]: CloudFX RADIATION DOSE: CT Rad equipment meets quality standard of care and radiation dose reduction techniq ues were employed. CTDIvol: 53.2 mGy. DLP: 1044 mGy-cm. mGy. LIMITATIONS: None. FINDINGS: VENTRICLES: Normal size and contour. CEREBRUM: No masses. No hemorrhage. No midline shift. No evidence for acute infarction. Normal gra y/white matter differentiation. No areas of low density in the white matter. CEREBELLUM: No masses. No hemorrhage. No alteration of density. No evidence for acute infarction. EXTRAAXIAL SPACES: No fluid collections. No masses. ORBITS AND GLOBE: No intra- or extraconal masses. Normal contour of globe without masses. CALVARIUM: No fracture. PARANASAL SINUSES: No fluid or mucosal thickening. SOFT TISSUES: No mass or hematoma. OTHER: No other significant finding. IMPRESSION: NORMAL BRAIN CT WITHOUT CONTRAST. EVIDENCE OF ACUTE STROKE: NO. COMMENT: Quality ID # [id number]: Final reports with documentation of one or more dose reduction techniques (e.g., Automated exposure control, adjustment of the mA and/or kV according to patient size, use of iterative reconstruction technique) TECHNICAL DOCUMENTATION: JOB ID: [id number] [employer]- All Rights Reserved Reading location - IP/workstation name: [email or web address] [id number] BEDS AT THE [facility]-RR2
[2017-08-19 16:39] VITALS: BP 122/100
--- NOTE | 2017-08-19 20:38 | EKG REPORT ---
SEVERITY:- NORMAL ECG - SINUS RHYTHM : Confirmed by: Yfn De Guzman MD 19-Aug-2017 20:37:07
== END 2017-08-19 16:37 | disposition home or self-care (01) ==
LOC: ER 12:14
DX: I95.1 Orthostatic hypotension (principal); R42 Dizziness and giddiness; R06.02 Shortness of breath; R05 Cough; R06.2 Wheezing; R51 Headache; R11.0 Nausea; R53.1 Weakness; F17.210 Nicotine dependence, cigarettes, uncomplicated; I50.9 Heart failure, unspecified; I25.10 Atherosclerotic heart disease of native coronary artery without angina pectoris; E78.00 Pure hypercholesterolemia, unspecified; I11.0 Hypertensive heart disease with heart failure; E11.9 Type 2 diabetes mellitus without complications; Z90.49 Acquired absence of other specified parts of digestive tract; Z98.1 Arthrodesis status
CPT/HCPCS: 93005; 94640; 99285; 87040; 36415; 80177; 82553; 82550; 85025; 80053; 81001; 84484; 80307; 83605; 83880; 71046; 70450; 93010; A9270 ×3; J7040; J7620